=== PATIENT | female | born 1955 | race Two or more races ===

== ENCOUNTER 2019-05-21 10:03 | Outpatient (CLI) | payer BC ==
[~2019-05-21] VITALS: Ht 172.7 cm; Wt 68.0 kg
[~2019-05-21 10:03] MED LIST: Bupivacaine 0.5% Inj 30 ml vial INJ ONE; Depo-Medrol 80mg Vial IARTIC ONE; Lidocaine 1% Plain 30 ml INJ ONE
--- NOTE | 2019-05-21 10:40 | Pre-Procedure Note/Attestation ---
Pre-Procedure Note/Attestation Complete Prior to Procedure Planned Procedure: right Procedure Narrative: Therapeutic hip injection Indications for Procedure Pre-Operative Diagnosis: R hip osteoarthritis Attestation I attest that I discussed the nature of the procedure; its benefits; risks and complications; and alternatives (and the risks and benefits of such alternatives ), prior to the procedure, with the patient (or the patient's legal workforce services representative). I attest that, if there was a reasonable possibility of needing a blood transfusion, the patient (or the patient's legal workforce services representative) was given the [facility] standardized written summary, pursuant to the Perez Margaret Blood Safety Act ([place] Health and Safety Code # 1645, as amended). I attest that I re-evaluated the patient just prior to the surgery and that there has been no change in the patient's H&P, except as documented below: Alejandro Amos MD May 21, 2019 10:40
--- NOTE | 2019-05-21 11:00 | Brief Operative Note ---
Immediate Post Operative Note Operative Note Pre-op Diagnosis: R hip osteoarthritis Procedure: R hip steroid injection Post-op Diagnosis: same Surgeon: Debra Coombs Anesthesia: local Specimen: none Complications: none Fluids: none Implant(s) used?: No Alejandro Coombs MD May 21, 2019 11:00
--- NOTE | 2019-05-21 17:16 | Diagnostic Imaging Report ---
Indication: Patient pain secondary to osteoarthrosis Technique: Informed consent obtained prior to commencement of the procedure. Procedure timeout performed. Sterile prepping and draping right groin. Local anesthesia with 1% lidocaine. Under fluoroscopic guidance, 22-gauge spinal needle was passed to the superolateral femoral head neck junction. Small amount of lidocaine was injected, noted to flow freely. Small amount of contrast was injected, noted to flow freely and opacify the joint space. 10 mL mixture of 4 mL Marcaine, 4 mm lidocaine, and 80 mg of Depo-Medrol injected. Needle was removed. The patient tolerated the procedure well, without immediate complication. Total fluoroscopy time 53.9 sac. Total dose area product 0.1924 mGym2 Number of images: 2 Comparison: none Findings: Intraprocedural images document needle placement within the joint Impression: Right hip steroid injection, as described
== END 2019-05-21 12:03 | disposition home or self-care (01) ==
LOC: ULS 10:03
DX: M25.551 Pain in right hip (principal); M16.11 Unilateral primary osteoarthritis, right hip
CPT/HCPCS: 27096; J1040; J2001; J3490

== ENCOUNTER 2019-07-13 05:39 | Inpatient (IN) | payer BC ==
[~2019-07-13] VITALS: Ht 172.7 cm; Wt 70.3 kg
[2019-07-13] VITALS (12 sets, daily range): BP systolic 102–143; BP diastolic 56–90
[~2019-07-13 05:39] MED LIST changes: -Bupivacaine 0.5% Inj 30 ml vial INJ ONE; -Depo-Medrol 80mg Vial IARTIC ONE; +GABAPENTIN100 MG ORAL; -Lidocaine 1% Plain 30 ml INJ ONE; +VALIUM5 MG ORAL
[2019-07-13] MEDS ORDERED: oxyCONTIN 20mg tab ORAL ONE (06:00)
[2019-07-13] MEDS ORDERED: ceFAZolin 1gm IVPB IVPB ONE ×2 (06:00)
[2019-07-13] MEDS ORDERED: celeBREX 200mg Cap **SURGERY PATIENTS ONLY ORAL ONE (06:00)
[2019-07-13] MEDS ORDERED: cloNIDine 1000mcg/10ml inj ONE (06:18)
[2019-07-13] MEDS ORDERED: EPINEPHrine 1mg/1ml Amp ONE (06:18)
[2019-07-13] MEDS ORDERED: Bupivacaine 0.5% Inj 30 ml vial INJ ONE (06:18)
[2019-07-13] MEDS ORDERED: LR 1000ml 1,000 ML IVLG SCH (06:33)
--- NOTE | 2019-07-13 06:35 | Anethesia Preoperative Eval ---
Anesthesia Pre-op PMH/ROS General Date of Evaluation: Jul 13, 2019 Time of Evaluation: 06:46 Anesthesiologist: Bette ASA Score: ASA 2 Mallampati Score Class I : Soft palate, uvula, fauces, pillars visible Class II: Soft palate, uvula, fauces visible Class III: Soft palate, base of uvula visible Class IV: Only hard plate visible Mallampati Classification: Class II Surgeon: Samson Diagnosis: R Hip Pain Surgical Procedure: R Hip Total Arthroplasty Anesthesia History: none Family History: no anesthesia problems Allergies: Coded Allergies: No Known Allergies (Unverified , 05/21/19) Medications: see eMAR Patient NPO?: Yes Past Medical History Cardiovascular: Reports: HTN, other - HL Neurologic/Psychiatric: Reports: depression/anxiety Musculoskeletal/Integumentary: Reports: OA - Osteoporosis Anesthesia Pre-op Phys. Exam Physician Exam Last Vital Signs Date Time Temp Pulse Resp B/P (MAP) Pulse Ox O2 Delivery O2 Flow Rate FiO2 07/13/19 06:26 97.9 67 18 124/78 (93) 97 Constitutional: NAD Neurologic: CN 2-12 intact Cardiovascular: RRR Respiratory: CTA Gastrointestinal: S/NT/ND Airway Exam Mallampati Score: Class II MO: full ROM: limited Teeth: missing, intact Anesthesia Pre-op A/P Risk Assessment & Plan Assessment: ASA 2 Plan: GA, SED, Spinal Status Change Before Surgery: No Pre-Antibiotics Dru Gram Ancef IV Given Within 1 Hr of Incision: No Time Given: 07:11 Migue Amos MD Jul 13, 2019 06:35
[2019-07-13] MEDS ORDERED: Dexamethasone 4mg/ml vial ONE (06:38)
[2019-07-13] MEDS ORDERED: Propofol 200mg/20ml IV ONE (06:38)
[2019-07-13] MEDS ORDERED: Sodium Chloride 10ml vial INJ ONE (06:38)
[2019-07-13] MEDS ORDERED: Lidocaine 1% MPF 10mg/ml 5ml ONE (06:38)
[2019-07-13] MEDS ORDERED: LORazepam Inj 2mg/ml 1ml IV PRN (06:45)
[2019-07-13] MEDS ORDERED: HYDROcodone/Acetamin 5/325 tab ORAL PRN ×2 (06:45→07:00)
[2019-07-13] MEDS ORDERED: Meperidine 50mg/ml Inj(FOR RIGORS ONLY) IVP PRN (06:45)
[2019-07-13] MEDS ORDERED: Ketorolac 30mg Inj IV PRN ×2 (06:45)
[2019-07-13] MEDS ORDERED: Tranexamic Acid 1,000 MG in NS 55 ML IV SCH (06:45)
[2019-07-13] MEDS ORDERED: Midazolam 2mg/2ml Inj IVP PRN (06:45)
[2019-07-13] MEDS ORDERED: DiphenhydrAMINE 50mg/ml Inj IVP PRN (06:45)
[2019-07-13] MEDS ORDERED: Labetalol 5mg/ml 20ml vial IV PRN (06:45)
[2019-07-13] MEDS ORDERED: Atropine Sulfate 0.4mg/ml inj IVP PRN (06:45)
[2019-07-13] MEDS ORDERED: Hydromorphone 0.5mg/0.5ml inj IVP PRN (06:45)
[2019-07-13] MEDS ORDERED: oxyCODONE HCL/Acetaminophen 5/325mg ORAL PRN (06:45)
[2019-07-13] MEDS ORDERED: HYDROcodone/Acetamin 7.5/325 tab ORAL PRN (06:45)
[2019-07-13] MEDS ORDERED: Tranexamic Acid 1,000 MG in NS 65 ML IV SCH (06:45)
[2019-07-13] MEDS ORDERED: Metoclopramide 10mg/2ml Inj IVP PRN (06:45)
[2019-07-13] MEDS ORDERED: fentaNYL 100 mcg/2 mL IV PRN (06:45)
[2019-07-13] MEDS ORDERED: NeoSporin Gu Irrig 1ml Amp IRRIG ONE (06:46)
[2019-07-13] MEDS ORDERED: Bacitracin 50000 Units Vial ONE (06:46)
[2019-07-13] MEDS ORDERED: Bupivacaine w/Epi 0.5% 30ml Vial INJ ONE (06:46)
--- NOTE | 2019-07-13 06:55 | Pre-Procedure Note/Attestation ---
Pre-Procedure Note/Attestation Complete Prior to Procedure Planned Procedure: right Procedure Narrative: Rt total hip arthroplasty Indications for Procedure Pre-Operative Diagnosis: Rt hip arthritis Attestation I attest that I discussed the nature of the procedure; its benefits; risks and complications; and alternatives (and the risks and benefits of such alternatives ), prior to the procedure, with the patient (or the patient's legal treasury representative). I attest that, if there was a reasonable possibility of needing a blood transfusion, the patient (or the patient's legal treasury representative) was given the [facility] standardized written summary, pursuant to the Perez Margaret Blood Safety Act ([place] Health and Safety Code # 1645, as amended). I attest that I re-evaluated the patient just prior to the surgery and that there has been no change in the patient's H&P, except as documented below: NONE Bryn Davies MD Jul 13, 2019 06:55
[2019-07-13] MEDS ORDERED: NS Irrig 1000ml ONE (07:00)
[2019-07-13] MEDS ORDERED: Sterile Water Irrig 1000ml IRRIG ONE (07:00)
[2019-07-13] MEDS ORDERED: Milk of Magnesia 30ml Ud ORAL PRN (07:00)
[2019-07-13] MEDS ORDERED: LR 1000ml ONE (07:00)
[2019-07-13] MEDS ORDERED: ePHEDrine 50mg/ml Inj ONE (07:16)
--- NOTE | 2019-07-13 07:50 | Immediate Post-Op Evaluation ---
Immediate Post-Op Evalulation Immediate Post-Op Evalulation Procedure: R Hip Total Arthroplasty Date of Evaluation: Jul 13, 2019 Time of Evaluation: 07:32 IV Fluids: 1000 LR Blood Products: 0 Estimated Blood Loss: 40 Urinary Output: 150 Blood Pressure Systolic: 141 Blood Pressure Diastolic: 90 Pulse Rate: 84 Respiratory Rate: 16 O2 Sat by Pulse Oximetry: 100 Temperature (Fahrenheit): 97.9 Pain Score (1-10): 1 Nausea: No Vomiting: No Complications 0 Patient Status: awake, reacts, patent, none Hydration Status: adequate Dru Gram Ancef IV Given Within 1 Hr of Incision: Yes Time Given: 07:11 Migue Amos MD Jul 13, 2019 07:50
--- NOTE | 2019-07-13 10:12 | Brief Operative Note ---
Immediate Post Operative Note Operative Note Chief Complaint: rt hip arthritis Pre-op Diagnosis: rt hip arthritis Procedure: rt total hip arthroplasty Post-op Diagnosis: same as pre-op Findings: consistent w/pre-op dx studies Surgeon: md zack Glaze Sprayer: rhett joel Anesthesiologist: md zachery Anesthesia: general Specimen: yes Complications: none Condition: stable Fluids: ns Estimated Blood Loss: minimal Drains: none Implant(s) used?: Yes - Danica Guillen Jul 13, 2019 10:12
--- NOTE | 2019-07-13 10:45 | NUR ---
NURSE NOTES: PT BROUGHT UP TO 3 EAST FROM PACU. RECEIVED REPORT FROM CHARLIE TRIANA. PT IS AXOX4, CALM, RESTING IN BED. SCDS ON BOTH LOWER EXTREMITIES. IV ON LEFT HAND; ASYMPTOMATIC, PATENT AND INTACT. PT DENIES PAIN AT THIS TIME. ON NC 3L O2. PT STATES SHE HAS NO SENSATION OF LOWER EXTREMITIES AT THIS TIME. PEDAL PULSES PALPABLE AND NO SWELLING NOTED. PT EDUCATED TO NOTIFY RN IF FEELING NAUSEA OR PAIN. EDUCATED ON PRN PAIN MEDICATIONS. PT VERBALIZED UNDERSTANDING. BELONGINGS NOT BROUGHT UP WITH KAMILAH. RN WILL CONTACT OUTPATIENT SURGERY FOR BELONGINGS.
[2019-07-13] MEDS: D5 1/2NS w/KCl 20mEq 1,000 ML IV SCH (12:08)
--- NOTE | 2019-07-13 12:25 | Diagnostic Imaging Report ---
Indication: Postoperative Technique: One view of the pelvis Comparison: 2 hours earlier Findings: There is a right hip arthroplasty prosthesis in good position. Interim replacement of previously demonstrated right femoral broach with the femoral stem of the prosthesis. Retained air from the surgical exposure seen within the soft tissues. Impression: Postoperative right hip. No unusual features MTDD
--- NOTE | 2019-07-13 12:48 | NUR ---
*-* INSURANCE *-* ALL AVAILABLE CLINICALS HAVE BEEN FAXED TO: [employer] Auth#[id number] No CM yet & BX Tracking#[id number]
[2019-07-13] MEDS: Docusate 100mg cap ORAL SCH ×2 (13:17→17:28)
--- NOTE | 2019-07-13 14:12 | NUR ---
NURSE NOTES: PER DR YANG, ASK DR HUNTER FOR DVT PROPHYLAXIS. RN LEFT MESSAGE FOR DR HUNTER'S EXCHANGE. PER DR ZAVALA, OK TO CONTINUE HOME MEDS: GABAPENTIN 100MG BID AND DIAZEPAM 5MG PO PRN QHS.
--- NOTE | 2019-07-13 15:11 | NUR ---
P.T Note: P.T evaluation completed and treatment initiated per THR protocol POD#0. Pt. is alert, despite being drowsy as pt described. Pt denied c/o pain but dizziness and numbness of the entire RLE secondary to anaesthesia still in effect. Educated pt on spinal precautions, AGA exercise protocol as well as safety with mobilities. POC and recommendation were also discussed. Pt verbalized/indicated understanding. Pt tolerated P.T evaluation and treatment well despite being limited by dizziness and being drowsy. Pt currently require MIN A X 1 for bed mobilities, Transfers and Gait/ambulation using the FWW. Skilled P.T services is warranted during stay to facilitate return to PLOF. Recommend Home P.T ,FWW and 3 in 1 Bedside commode at [place]. Thank you for this referral.
[2019-07-13] MEDS: ceFAZolin sod 2 GM in D5W 110 ML IV SCH ×2 (15:52→22:44)
--- NOTE | 2019-07-13 16:25 | NUR ---
CASE MANAGEMENT:REVIEW 63 YR OLD FEMALE HERE FOR ELECTIVE SURGERY SI: RT HIP OSTEOARTHRITIS 97.9 67 18 124/78 97% ON RA IS: TO SURGERY FOR: RT TOTAL HIP ARTHROPLASTY : TO MED/SURG 3 EAST POST OP
--- NOTE | 2019-07-13 16:30 | NUR ---
NURSE NOTES: BELONGINGS CHECKED AT BEDSIDE. ALL BELONGINGS ARE ACCOUNTED. PT WISHES TO HAVE CLOTHING AND CANE PLACED IN CLOSET.
--- NOTE | 2019-07-13 16:59 | NUR ---
NURSE NOTES: PT HAS NOT VOIDED SINCE ARRIVAL TO UNIT AROUND 1030 HRS. BLADDER SCAN SHOWS 450ML URINE IN BLADDER. RN LEFT MESSAGE FOR DR YANG'S OFFICE. AWAITING NEW ORDERS. CRN MADE AWARE. PT STATES PAIN IS WELL-CONTROLLED, DENIES NAUSEA OR SOB. IN NO APPARENT DISTRESS AT THIS TIME.
[2019-07-13] MEDS: Aspirin Baby 81mg ORAL SCH (17:28)
--- NOTE | 2019-07-13 17:30 | Operative Note - Dictated ---
DATE OF OPERATION: 07/13/2019 PREOPERATIVE DIAGNOSIS: Right hip end-stage arthritis. POSTOPERATIVE DIAGNOSIS: Right hip end-stage arthritis. PROCEDURE: Right total hip arthroplasty using Diana Accolade/Trident system, size 6 Accolade 127 degree neck angle stem, size 52 mm Trident Acetabular Shell with two dome screws, 10-degree lip AltrX cross-linked poly, and +0 36 mm head. SURGEON: Bryn Davies M.D. GRAIN MERCHANDISING MANAGER: Danica Asher PA-C. ANESTHESIOLOGIST: Migue Amos M.D. ANESTHESIA: Spinal anesthesia. ESTIMATED BLOOD LOSS: Less than 150 mL. COMPLICATIONS: None. BRIEF HISTORY: The patient is a very pleasant 63-year-old female, who has had ongoing right hip arthritis. She failed nonoperative treatment including physical therapy, anti-inflammatory as well as activity modification. She was limited in activities with walking and she has hard time sleeping. After full discussion of risks and benefits of surgery and complications associated with it including infection, bleeding, neurovascular complication, possible leg length discrepancy, DVT, PEs, limping, footdrop, and loosening of the prosthesis and require revision arthroplasty as well as dislocation, she opted for surgical treatment as described above. OPERATIVE PROCEDURE: The patient was brought to the operating room, placed supine, all pressure points were well padded. Spinal anesthesia was induced. The patient was placed in left lateral decubitus position with the right hip up. The patient was stabilized using a pegboard. All pressure points well padded. The right hip was then prepped and draped in usual sterile fashion and after time-out was performed, preoperative antibiotics and tranexamic acid was given, a standard posterolateral approach to the hip was undertaken. The incision was taken through subcutaneous tissue down to the gluteal fascia. The gluteal fascia was opened, anteriorly retractors were placed in. The short external rotators were released and the capsule was T'd and they were tagged for later repair. The labrum was resected and the hip was dislocated. At this point, a standard femoral neck cut was performed without any complication. This was done approximately 1 cm proximal to the lesser trochanter. Once this was completed, the anterior acetabular retractor was placed in and other retractors were placed on the acetabulum to expose the acetabulum. The labrum was resected and using inferior transverse acetabular ligament as a guide, the medial osteophyte was removed. Subsequently, sequential reaming was performed all the way up to size 52 mm. Care was given to perform reaming above 45 degrees of inclination and 35 degrees of anteversion. Once this was completed, the acetabular cup was then trialed and subsequently after irrigating with Simpulse irrigation, a 3-hole 52 mm Acetabular Trident Shell was then placed in without any complications. There was excellent stability. 20 mm and 25 mm dome screws were placed in. Once this was completed, care was given to the liner. The acetabulum was irrigated and a 10-degree lip liner was then locked in without any complication. Once this was completed, care was given to the femur. The retractors were removed. At this point, care was given to the femur. The hip was internally rotated. Appropriate retractors were placed in. The entry point was lateralized and a canal finder was placed. Sequential broaching was performed from size 1 to size 6. Size 6 provided excellent axial rotational stability. A high-offset neck and a +0 36 mm trial head were assembled and the entire construct was reduced. The leg lengths appeared to be equal. The range of motion was excellent. There was no significant tension. There was good internal and external rotation and there was excellent stability at 0, 30 degrees, 45 degrees, and 90 degrees of flexion with the hip in neutral Adduction. The hip could be internally rotated up to 75 to 80 degrees without dislocation. Once this was completed, intraoperative x-rays were obtained, which showed equal leg lengths and the components were in excellent position. At this point, the hip was dislocated again and the trial components were removed. A size 6 Accolade stem was then malleted in and after thorough irrigation of the femur and wounds. A high-offset neck was used. Subsequently, a 36 mm +0 cobalt-chromium head was applied and after drying the [place] taper and was malleted in and stability of the head and neck were checked, there was excellent stability. At this point, the entire construct was reduced and range of motion, leg lengths and stability was rechecked and appeared to be perfect. Wounds were thoroughly irrigated using copious amount of Simpulse irrigation. The short external rotators were closed using drill holes into the greater trochanter. The tensor fascia and gluteal fascia was then closed using #1 Vicryl suture. The subcutaneous tissue was closed using 2-0 Vicryl suture. Skin was closed using 3-0 Monocryl suture. Dermabond was applied. The patient tolerated procedure well without any complication, was taken recovery room in stable condition. All lap counts and instrument counts were correct. Bryn Davies M.D. DR: MARLIN JOB#: [id number] CC: YADIRA
[2019-07-13] MEDS: HYDROmorphone 1mg/ml Carpuject SUBQ PRN ×2 (17:38→22:42)
--- NOTE | 2019-07-13 17:55 | NUR ---
NURSE NOTES: PER JANN TILLEY (CHRISTOS), SCDS AND ASA 81MG OK DVT PROPHYLAXIS.
--- NOTE | 2019-07-13 18:45 | NUR ---
NURSE NOTES: PT VOIDED MODERATE AMOUNT OF CLEAR YELLOW URINE BY BEDPAN.
--- NOTE | 2019-07-13 19:21 | NUR ---
HAND-OFF: Report given to Khurram BELCHER RN.
--- NOTE | 2019-07-13 19:30 | NUR ---
NURSE NOTES: Received report from Jose Luis RN and rounds made with out going nurse. Received pt laying in bed, AOx4, denies pain at this time, no distress noted. Surgical dressing C/D/I. Neuro check wnl. IV patent and intact. IV fluid infusing as ordered. Bed in lowest position and locked, side rails up x 2, call light within reach. Will continue to monitor.
[2019-07-13] MEDS: oxyCONTIN 20mg tab ORAL SCH (21:37)
[2019-07-14] VITALS: BP 111/62
[2019-07-14] MEDS: D5 1/2NS w/KCl 20mEq 1,000 ML IV SCH ×3 (01:15→17:20)
[2019-07-14] MEDS: HYDROmorphone 1mg/ml Carpuject SUBQ PRN ×5 (02:42→20:09)
[2019-07-14 06:20] VITALS: BP 105/63
[2019-07-14 06:42] LABS: BASOPHILS % (AUTO) 0.5 % (0.0-2.0); EOSINOPHILS % (AUTO) 2.2 % (0.0-3.0); HEMATOCRIT 30.1 % (37.0-47.0); HEMOGLOBIN 10.3 G/DL (12.0-16.0); LYMPHOCYTES % (AUTO) 26.1 % (20.0-45.0); MEAN CORPUSCULAR VOLUME 87 FL (80-99); MONOCYTES % (AUTO) 8.3 % (1.0-10.0); NEUTROPHILS % (AUTO) 62.9 % (45.0-75.0); PLATELET COUNT 195 K/UL (150-450); RED BLOOD COUNT 3.44 M/UL (4.20-5.40); RED CELL DISTRIBUTION WIDTH 12.3 % (11.6-14.8); WHITE BLOOD COUNT 8.4 K/UL (4.8-10.8)
[2019-07-14 07:00] LABS: ANION GAP 2 mmol/L (5-15); BLOOD UREA NITROGEN 11 mg/dL (7-18); CALCIUM 9.1 MG/DL (8.5-10.1); CARBON DIOXIDE 31 MMOL/L (21-32); CHLORIDE 108 MMOL/L (98-107); CREATININE 0.6 MG/DL (0.55-1.30); POTASSIUM 4.7 MMOL/L (3.5-5.1); SODIUM 141 MMOL/L (136-145)
--- NOTE | 2019-07-14 07:20 | NUR ---
NURSE NOTES: HANDOFF RECEIVED FROM CHARLIE GLALAGHER. PATIENT RECEIVED AWAKE AND ALERT, RESTING IN BED. PATIENT IS ABLE TO MAKE NEEDS KNOWN. PATIENT IV SITE IS CLEAN, DRY AND INTACT RUNNING PRESCRIBED FLUIDS. SURGICAL SITE IS CLEAN DRY AND INTACT. BED IS IN THE LOW AND LOCKED POSITION, PATIENT HAS CALL LIGHT WITHIN REACH. WILL CONTINUE TO MONITOR PATIENT.
--- NOTE | 2019-07-14 07:30 | NUR ---
HAND-OFF: Report given to CHARLIE Badillo. Pt in stable condition.
--- NOTE | 2019-07-14 07:31 | Orthopedic Progress Note ---
Orthopedic - Progress Note Subjective Symptoms: c/o post-op hip pain Objective Last 24 Hour Vital Signs Date Time Temp Pulse Resp B/P (MAP) Pulse Ox O2 Delivery O2 Flow Rate FiO2 07/14/19 06:20 98.5 90 18 105/63 (77) 98 07/14/19 00:00 98.4 93 18 111/62 (78) 99 07/13/19 21:00 Room Air 07/13/19 20:00 98.7 92 17 103/56 (72) 98 07/13/19 17:04 Nasal Cannula 2.0 07/13/19 16:00 98.3 96 19 102/59 (73) 96 07/13/19 12:00 97.3 81 18 136/70 (92) 98 07/13/19 11:15 97.1 71 19 133/81 (98) 97 07/13/19 10:45 97.2 82 17 137/69 (91) 96 07/13/19 10:00 97.2 76 12 135/73 100 Nasal Cannula 3 07/13/19 09:50 66 12 137/73 100 Nasal Cannula 3 07/13/19 09:40 73 12 142/75 100 Nasal Cannula 3 07/13/19 09:30 78 12 143/76 100 Simple Mask 6 07/13/19 09:25 79 18 142/80 100 Simple Mask 6 07/13/19 09:21 97.9 81 22 141/90 100 Simple Mask 6 07/13/19 09:19 84 16 100 Intake and Output 07/13/19 07/14/19 18:59 06:59 Intake Total 2165 ml 1235 ml Output Total 190 ml Balance 1975 ml 1235 ml Intake Oral 480 ml 300 ml IV Total 1685 ml 935 ml Output Urine Total 150 ml Estimated Blood Loss 40 ml # Voids 1 Laboratory Tests Test 07/14/19 05:20 White Blood Count 8.4 K/UL (4.8-10.8) Red Blood Count 3.44 M/UL (4.20-5.40) L Hemoglobin 10.3 G/DL (12.0-16.0) L Hematocrit 30.1 % (37.0-47.0) L Mean Corpuscular Volume 87 FL (80-99) Mean Corpuscular Hemoglobin 30.0 PG (27.0-31.0) Mean Corpuscular Hemoglobin Concent 34.3 G/DL (32.0-36.0) Red Cell Distribution Width 12.3 % (11.6-14.8) Platelet Count 195 K/UL (150-450) Mean Platelet Volume 7.0 FL (6.5-10.1) Neutrophils (%) (Auto) 62.9 % (45.0-75.0) Lymphocytes (%) (Auto) 26.1 % (20.0-45.0) Monocytes (%) (Auto) 8.3 % (1.0-10.0) Eosinophils (%) (Auto) 2.2 % (0.0-3.0) Basophils (%) (Auto) 0.5 % (0.0-2.0) Sodium Level 141 MMOL/L (136-145) Potassium Level 4.7 MMOL/L (3.5-5.1) Chloride Level 108 MMOL/L (98-107) H Carbon Dioxide Level 31 MMOL/L (21-32) Anion Gap 2 mmol/L (5-15) L Blood Urea Nitrogen 11 mg/dL (7-18) Creatinine 0.6 MG/DL (0.55-1.30) Estimat Glomerular Filtration Rate > 60 mL/min (>60) Glucose Level 115 MG/DL (74-106) H Calcium Level 9.1 MG/DL (8.5-10.1) Wound: clean, dry, intact Drains: none Neuro Status: normal Vascular Status: normal Assessment Post-op Diagnosis right total hip arthoplasty POD#1 Plan Plan: PT, pain management, discharge plan, discharge to home Additional Comments Anticipate discharge tomorrow Bryn Davies MD Jul 14, 2019 07:31
--- NOTE | 2019-07-14 07:58 | 48 Hour Post Anesthesia Eval ---
Post Anesthesia Evaluation Procedure: R Hip Total Arthroplasty Date of Evaluation: Jul 14, 2019 Time of Evaluation: 06:16 Blood Pressure Systolic: 105 0: 63 Pulse Rate: 90 Respiratory Rate: 18 Temperature (Fahrenheit): 98.5 O2 Sat by Pulse Oximetry: 98 Airway: patent Nausea: No Vomiting: No Pain Intensity: 2 Hydration Status: adequate Cardiopulmonary Status: Stable Mental Status/LOC: patient returned to baseline Follow-up Care/Observations: 0 Post-Anesthesia Complications: 0 Follow-up care needed: N/A Migue Amos MD Jul 14, 2019 07:58
[2019-07-14 08:00] VITALS: BP 126/70
[2019-07-14] MEDS: Docusate 100mg cap ORAL SCH ×3 (08:59→17:14)
[2019-07-14] MEDS: celeBREX 200mg Cap **SURGERY PATIENTS ONLY ORAL SCH (08:59)
[2019-07-14] MEDS: Aspirin Baby 81mg ORAL SCH ×2 (08:59→17:15)
[2019-07-14] MEDS: oxyCONTIN 20mg tab ORAL SCH ×2 (09:01→21:00)
--- NOTE | 2019-07-14 10:13 | NUR ---
DISCHARGE PLANNING DISCHARGE ORDER NOTED CALLED DR HUNTER'S OFFICE AND SPOKE WITH MARU T: [phone] MARU SAID HE WOULD ARRANGE THE HOME HEALTH FOR THIS PATIENT
--- NOTE | 2019-07-14 10:15 | NUR ---
NURSE NOTES: PATIENT STATES THAT SHE FEELS A LITTLE DIZZY AFTER STANDING UP WITH PT. BLOOD PRESSURE IN THE HIGH 80'S PATIENT'S BASELINE BLOOD PRESSURE IN THE 90S-LOW 100'S PATIENT ALSO STATED THAT SHE FEELS NAUSEOUS, PATIENT DOES NOT HAVE ANY PRN MEDICATIONS FOR NAUSEA. ASKED PATIENT IF SHE WOULD LIKE ME TO CONTACT THE DR TO GET SOMETHING FOR NAUSEA, SHE STATED NOT AT THIS TIME. INFORMED PATIENT TO USE CALL LIGHT AND LET ME KNOW IF SHE CHANGES HER MIND AND WOULD LIKE ME TO CONTACT THE DR. Addendum: 07/14/19 at 1345 by Justino Gomez RN NOTED IN ABOVE NOTE THAT PATIENTS BASELINE BLOOD PRESSURE IS IN THE 90S-100S CHARTED ON THE WRONG PATIENT. ALL OF THE ABOVE INFORMATION IS CORRECT EXCEPT THE NOTED BASELINE BLOOD PRESSURE. PLEASE IGNORE THE BASELINE BLOOD PRESSURE NOTED ABOVE.
--- NOTE | 2019-07-14 10:37 | NUR ---
NURSE NOTES: RE-CHECKED EMAR AND PATIENT DOES HAVE PRN MEDICATION FOR NAUSEA. WILL LET PATIENT KNOW AND ADMINISTER MEDICATION IF REQUESTED.
[2019-07-14 12:00] VITALS: BP 115/72
--- NOTE | 2019-07-14 13:46 | NUR ---
NURSE NOTES: PATIENT HAS ORDER TO STOP IV FLUIDS IF ABLE TO TOLERATE ORAL LIQUIDS. PATIENT STATES THAT SHE IS TIRED AND WOULD RATHER HAVE THE IV FLUIDS RUNNING BECAUSE SHE DOES NOT FEEL UP TO DRINKING FLUIDS BY MOUTH SHE WANTS TO FOCUS ON SLEEPING.
--- NOTE | 2019-07-14 14:00 | NUR ---
NURSE NOTES: PATIENT HAS ORDER FOR DISCHARGE TOMORROW, PATIENT EXPRESSED CONCERN AT DISCHARGE. PATIENT TOLD PT AND I THAT SHE DOES NOT FEEL LIKE SHE WILL BE READY TO GO HOME TOMORROW, STATES THAT SHE HAS TO CLIMB A LOT OF STEEP STAIRS TO GET TO HER APARTMENT. WILL ENDORSE TO NIGHTSHIFT NURSE TO TELL DAY SHIFT 07/15 THAT SHE DOES NOT FEEL READY TO BE DISCHARGED.
--- NOTE | 2019-07-14 14:14 | NUR ---
*-* INSURANCE *-* ALL AVAILABLE CLINICALS HAVE BEEN FAXED TO: [employer] Auth#[id number] No CM yet & BX Tracking#[id number]
[2019-07-14 16:00] VITALS: BP 107/71
--- NOTE | 2019-07-14 19:30 | NUR ---
NURSE NOTES: Received report marlene Badillo RN. Received pt laying in bed, AOx4, pain level 5/10, will medicate for pain as needed. Surgical dressing C/D/I. Neuro check wnl. IV patent and intact. No distress noted. Bed in lowest position and locked, side rails up x 2, call light within reach. Will continue to monitor.
--- NOTE | 2019-07-14 19:40 | NUR ---
NURSE NOTES: Complaint of heartburn. Denies nausea. No medication for heartburn. Paged Dr. Hinojosa, awaiting for call back.
--- NOTE | 2019-07-14 19:55 | NUR ---
NURSE NOTES: Dr. Hinojosa called back order obtained for heartburn medication. Order verified and read back.
--- NOTE | 2019-07-14 19:56 | NUR ---
HAND-OFF: Report given to CHARLIE GALLAGHER.
[2019-07-14 20:00] VITALS: BP 104/68
--- NOTE | 2019-07-14 20:43 | History & Physical ---
History of Present Illness General Date patient seen: Jul 14, 2019 Reason for Hospitalization: s/p THR consulted for medical care Present Illness Allergies: Coded Allergies: No Known Allergies (Unverified , 05/21/19) Medication History Scheduled Gabapentin* (Gabapentin*), 100 MG ORAL BID, (Reported) Scheduled PRN Diazepam* (Valium*), 5 MG ORAL HS PRN for ANXIETY, (Reported) Patient History Healthcare decision maker benny(sister) Resuscitation status Full Code Advanced Directive on File No Review of Systems Review of Symptoms General ROS: no weight loss or fever Ophthalmic ROS: no visual changes or eye irritation Endocrine ROS: no polyuria, polydipsia, weight changes, temperature intolerance Respiratory ROS: no cough, shortness of breath, or wheezing Cardiovascular ROS: no chest pain or dyspnea on exertion Gastrointestinal ROS: denies abdominal pain, bright red blood in stool. Musculoskeletal ROS: has pain Neurological ROS: no TIA or stroke symptoms Dermatological ROS: no new or changing skin lesions, rashes or pruritis Physical Exam Physical Exam General appearance: alert, cooperative, Head: Normocephalic, without obvious abnormality, atraumatic Neck: no carotid bruit and no JVD Lungs: clear to auscultation bilaterally Heart: regular rate and rhythm, S1, S2 normal, Abdomen: soft, non-tender. Extremities: no cyanosis or edema Last 24 Hour Vital Signs Date Time Temp Pulse Resp B/P (MAP) Pulse Ox O2 Delivery O2 Flow Rate FiO2 07/14/19 16:00 98.1 103 20 107/71 (83) 97 07/14/19 12:00 98.4 92 20 115/72 (86) 97 07/14/19 09:00 Room Air 07/14/19 08:00 98.6 97 21 126/70 (88) 97 07/14/19 07:58 90 18 98 07/14/19 06:20 98.5 90 18 105/63 (77) 98 07/14/19 00:00 98.4 93 18 111/62 (78) 99 07/13/19 21:00 Room Air Intake and Output 07/13/19 07/14/19 19:00 07:00 Intake Total 2165 ml 1235 ml Output Total 190 ml Balance 1975 ml 1235 ml Intake Oral 480 ml 300 ml IV Total 1685 ml 935 ml Output Urine Total 150 ml Estimated Blood Loss 40 ml # Voids 1 Laboratory Tests Test 07/14/19 05:20 White Blood Count 8.4 K/UL (4.8-10.8) Red Blood Count 3.44 M/UL (4.20-5.40) L Hemoglobin 10.3 G/DL (12.0-16.0) L Hematocrit 30.1 % (37.0-47.0) L Mean Corpuscular Volume 87 FL (80-99) Mean Corpuscular Hemoglobin 30.0 PG (27.0-31.0) Mean Corpuscular Hemoglobin Concent 34.3 G/DL (32.0-36.0) Red Cell Distribution Width 12.3 % (11.6-14.8) Platelet Count 195 K/UL (150-450) Mean Platelet Volume 7.0 FL (6.5-10.1) Neutrophils (%) (Auto) 62.9 % (45.0-75.0) Lymphocytes (%) (Auto) 26.1 % (20.0-45.0) Monocytes (%) (Auto) 8.3 % (1.0-10.0) Eosinophils (%) (Auto) 2.2 % (0.0-3.0) Basophils (%) (Auto) 0.5 % (0.0-2.0) Sodium Level 141 MMOL/L (136-145) Potassium Level 4.7 MMOL/L (3.5-5.1) Chloride Level 108 MMOL/L (98-107) H Carbon Dioxide Level 31 MMOL/L (21-32) Anion Gap 2 mmol/L (5-15) L Blood Urea Nitrogen 11 mg/dL (7-18) Creatinine 0.6 MG/DL (0.55-1.30) Estimat Glomerular Filtration Rate > 60 mL/min (>60) Glucose Level 115 MG/DL (74-106) H Calcium Level 9.1 MG/DL (8.5-10.1) Height (Feet): 5 Height (Inches): 8.00 Weight (Pounds): 155 Medications Current Medications Medications (Trade) Dose Ordered Sig/Jerica Route PRN Reason Start Time Stop Time Status Last Admin Dose Admin Acetaminophen (Tylenol) 650 mg Q4H PRN ORAL Mild Pain (Pain Scale 1-3) 07/13/19 07:00 08/12/19 06:59 Acetaminophen (Tylenol) 650 mg Q4H PRN ORAL temp>100 07/13/19 07:00 08/12/19 06:59 Acetaminophen/ Hydrocodone Bitart ([place] 5/325) 2 tab Q6H PRN ORAL Severe Pain (Pain Scale 7-10) 07/13/19 07:00 07/20/19 06:59 Acetaminophen/ Hydrocodone Bitart ([place] 7.5/325) 1 tab Q4H PRN ORAL Moderate Pain (Pain Scale 4-6) 07/13/19 07:00 07/20/19 06:59 Aspirin (ASA) 81 mg BID ORAL 07/13/19 18:00 08/12/19 17:59 07/14/19 17:15 Celecoxib (CeleBREX) 200 mg DAILY ORAL 07/14/19 09:00 08/13/19 08:59 07/14/19 08:59 Dextrose/ Electrolytes 1,000 ml @ 75 mls/hr [id number] IV 07/13/19 12:00 08/12/19 11:59 07/14/19 17:20 Diazepam (Valium) 5 mg HSPRN PRN ORAL Insomnia 07/13/19 13:45 07/20/19 13:44 07/13/19 20:02 Docusate Sodium (Colace) 100 mg THREE TIMES A DAY ORAL 07/13/19 13:00 08/12/19 12:59 07/14/19 17:14 Famotidine (Pepcid) 20 mg BID ORAL 07/14/19 20:00 08/13/19 19:59 07/14/19 20:13 Ferrous Sulfate (Feosol) 325 mg THREE TIMES A DAY ORAL 07/13/19 13:00 08/12/19 12:59 07/14/19 17:14 Gabapentin (Neurontin) 100 mg BID ORAL 07/13/19 18:00 08/12/19 17:59 07/14/19 17:14 Hydromorphone HCl (Dilaudid) 1 mg Q4H PRN SUBQ Mild Pain (Pain Scale 1-3) 07/13/19 07:00 07/20/19 06:59 07/14/19 20:09 Hydromorphone HCl (Dilaudid) 2 mg Q3H PRN SUBQ Severe Pain (Pain Scale 7-10) 07/13/19 10:25 07/20/19 10:24 Hydromorphone HCl (Dilaudid) 2 mg Q4H PRN SUBQ Moderate Pain (Pain Scale 4-6) 07/13/19 07:00 07/20/19 06:59 07/13/19 13:18 Magnesium Hydroxide (Mom) 30 ml DAILYPRN PRN ORAL Constipation 07/13/19 07:00 08/12/19 06:59 Oxycodone HCl (OxyCONTIN) 20 mg EVERY 12 HOURS ORAL 07/13/19 21:00 07/20/19 20:59 07/14/19 09:01 Pantoprazole (Protonix) 40 mg DAILY ORAL 07/14/19 09:00 08/13/19 08:59 07/14/19 09:00 Prochlorperazine (Compazine) 10 mg Q6H PRN IVP Nausea & Vomiting 07/13/19 10:30 08/12/19 06:59 Assessment/Plan Assessment/Plan: s/p thr perioperative blood loss Diagnosis [place] I: pain control monitor cbc pt ot dcvt porphyalxis scd on asa will follow Jorje Hinojosa MD Jul 14, 2019 20:43
[2019-07-15] VITALS: BP 114/71
[2019-07-15] MEDS: HYDROmorphone 1mg/ml Carpuject SUBQ PRN ×2 (00:11→05:04)
[2019-07-15 04:00] VITALS: BP 109/65
--- NOTE | 2019-07-15 05:28 | NUR ---
NURSE NOTES: Pt refused to have dressing change done to right hip at this time. Pt requested dressing change after breakfast.
[2019-07-15 06:35] LABS: BASOPHILS % (AUTO) 0.7 % (0.0-2.0); EOSINOPHILS % (AUTO) 4.8 % (0.0-3.0); HEMOGLOBIN 10.1 G/DL (12.0-16.0); LYMPHOCYTES % (AUTO) 18.3 % (20.0-45.0); MEAN CORPUSCULAR VOLUME 88 FL (80-99); MONOCYTES % (AUTO) 9.1 % (1.0-10.0); NEUTROPHILS % (AUTO) 67.1 % (45.0-75.0); PLATELET COUNT 178 K/UL (150-450); RED BLOOD COUNT 3.42 M/UL (4.20-5.40); RED CELL DISTRIBUTION WIDTH 12.2 % (11.6-14.8); WHITE BLOOD COUNT 9.5 K/UL (4.8-10.8)
--- NOTE | 2019-07-15 07:14 | NUR ---
HAND-OFF: Report given to CHARLIE Simons. Pt in stable condition. Endorsed to Kristyn that pt requested surgical dressing change after breakfast.
--- NOTE | 2019-07-15 07:59 | Orthopedic Progress Note ---
Orthopedic - Progress Note Subjective Symptoms: c/o post-op hip pain Objective Laboratory Tests Test 07/15/19 05:45 White Blood Count 9.5 K/UL (4.8-10.8) Red Blood Count 3.42 M/UL (4.20-5.40) L Hemoglobin 10.1 G/DL (12.0-16.0) L Hematocrit 30.0 % (37.0-47.0) L Mean Corpuscular Volume 88 FL (80-99) Mean Corpuscular Hemoglobin 29.5 PG (27.0-31.0) Mean Corpuscular Hemoglobin Concent 33.7 G/DL (32.0-36.0) Red Cell Distribution Width 12.2 % (11.6-14.8) Platelet Count 178 K/UL (150-450) Mean Platelet Volume 7.0 FL (6.5-10.1) Neutrophils (%) (Auto) 67.1 % (45.0-75.0) Lymphocytes (%) (Auto) 18.3 % (20.0-45.0) L Monocytes (%) (Auto) 9.1 % (1.0-10.0) Eosinophils (%) (Auto) 4.8 % (0.0-3.0) H Basophils (%) (Auto) 0.7 % (0.0-2.0) Last 24 Hour Vital Signs Date Time Temp Pulse Resp B/P (MAP) Pulse Ox O2 Delivery O2 Flow Rate FiO2 07/15/19 04:00 98.2 85 17 109/65 (80) 97 07/15/19 00:00 100.3 90 18 114/71 (85) 96 07/14/19 21:00 Room Air 07/14/19 20:00 100.4 97 18 104/68 (80) 98 07/14/19 16:00 98.1 103 20 107/71 (83) 97 07/14/19 12:00 98.4 92 20 115/72 (86) 97 07/14/19 09:00 Room Air 07/14/19 08:00 98.6 97 21 126/70 (88) 97 Intake and Output 07/14/19 07/15/19 18:59 06:59 Intake Total 975 ml 600 ml Balance 975 ml 600 ml Intake Oral 900 ml 600 ml IV Total 75 ml # Voids 2 2 Laboratory Tests Test 07/15/19 05:45 White Blood Count 9.5 K/UL (4.8-10.8) Red Blood Count 3.42 M/UL (4.20-5.40) L Hemoglobin 10.1 G/DL (12.0-16.0) L Hematocrit 30.0 % (37.0-47.0) L Mean Corpuscular Volume 88 FL (80-99) Mean Corpuscular Hemoglobin 29.5 PG (27.0-31.0) Mean Corpuscular Hemoglobin Concent 33.7 G/DL (32.0-36.0) Red Cell Distribution Width 12.2 % (11.6-14.8) Platelet Count 178 K/UL (150-450) Mean Platelet Volume 7.0 FL (6.5-10.1) Neutrophils (%) (Auto) 67.1 % (45.0-75.0) Lymphocytes (%) (Auto) 18.3 % (20.0-45.0) L Monocytes (%) (Auto) 9.1 % (1.0-10.0) Eosinophils (%) (Auto) 4.8 % (0.0-3.0) H Basophils (%) (Auto) 0.7 % (0.0-2.0) Wound: clean, dry, intact Drains: none Neuro Status: normal Vascular Status: normal Assessment Post-op Diagnosis POD 2 Procedure Performed rt total hip arthroplasty Plan Plan: PT, discharge plan Danica Asher Jul 15, 2019 07:59
[2019-07-15 08:00] VITALS: BP 105/63
--- NOTE | 2019-07-15 08:00 | NUR ---
NURSE NOTES: Received report from Cedric GUERRA. Patient is awake and oriented, no acute distress noted, reporting pain rated 4/10 at surgical site. SCD's and abductor pillow in place. Surgical site dressing clean and dry. IV intact, locked. Patient updated on plan of care for the day. Side rails upx2, bed low and locked, front wheel walker at bedside, call light in reach. Will continue to monitor.
[2019-07-15] MEDS: Docusate 100mg cap ORAL SCH ×3 (08:45→18:36)
[2019-07-15] MEDS: celeBREX 200mg Cap **SURGERY PATIENTS ONLY ORAL SCH (08:45)
[2019-07-15] MEDS: oxyCONTIN 20mg tab ORAL SCH ×2 (08:46→21:22)
--- NOTE | 2019-07-15 10:50 | NUR ---
NURSE NOTES: Patient had near syncopal episode while up with physical therapist. Patient reports she felt light headed and dizzy, patient assisted back to bed by PT and RN. Patient feels diaphoretic. VS assessed: BP 98/59, HR 79, RR 18, o2 saturation 96% on RA, patient placed on continuous pulseox. Charge nurse aware. Call light in reach and patient instructed not to get OOB without calling for assistance first. Will continue to monitor.
[2019-07-15 11:32] VITALS: BP 126/73
--- NOTE | 2019-07-15 11:33 | NUR ---
NURSE NOTES: Patient reports she is feeling better, no longer diaphoretic/dizzy, encouraged patient to drink liquids as tolerated. Reassessed VS: BP 126/73, HR 86, RR 16, temp 98.1, o2 saturation 98% of RA. Will continue to monitor.
--- NOTE | 2019-07-15 12:18 | NUR ---
CASE MANAGEMENT:REVIEW 07/15/19 SI:POD #2 RT TOTAL HIP ARTHROPLASTY 100.3 104 17 105/63 93% ON RA IS: ASA PO BID PEPCID PO BID CELEBREX PO QD PROTONIX PO QD OXYCONTIN PO Q12 NEURONTIN PO BID : MED/SURG STATUS 3 EAST PLAN: HOME TOMORROW
--- NOTE | 2019-07-15 12:55 | NUR ---
*-* INSURANCE *-* ALL AVAILABLE CLINICALS HAVE BEEN FAXED TO: [facility] Auth#[id number] NCM:FRANKLIN & BX Tracking#[id number]
--- NOTE | 2019-07-15 12:55 | NUR ---
*-* INSURANCE *-* ALL AVAILABLE CLINICALS HAVE BEEN FAXED TO: [facility] Auth#[id number] No CM yet & BX Tracking#[id number]
[2019-07-15 16:00] VITALS: BP 119/70
--- NOTE | 2019-07-15 16:34 | NUR ---
NURSE NOTES: Right hip dressing changed per MD order. Patient tolerated well. No s/s of surgical site infection noted on surgical wound assessment.
--- NOTE | 2019-07-15 18:43 | NUR ---
NURSE NOTES: Patient reported itchy, painful rash on back. Assessed patient's back and noted erythema and rash on back. Called Dr. Hinojosa and reported findings to MD. Received order for Benadryl PRN and Claritin PO daily. Orders read back and entered. Will carry out.
[2019-07-15] MEDS: HYDROcodone/Acetamin 7.5/325 tab ORAL PRN (18:54)
--- NOTE | 2019-07-15 19:45 | NUR ---
HAND-OFF: Report given to Sherie GUERRA.
[2019-07-15 20:00] VITALS: BP 126/71
--- NOTE | 2019-07-15 22:23 | NUR ---
NURSES NOTES: Received pt laying in bed, A/OX4, answers all questions appropriately and able to let needs be known. Patient ambulates to restroom without needing additional assistance. Received all 2100 meds that were due. No adverse effects noted from OxyContin 20mg. Patient offered benadrly for rash/ posterior, but pt declined. Will offer again. 100.4 temperature noted- tylenol 650 mg given at 2200. All other VS WNL. Monitoring pt for AMS resulting from pain medication. None noted thus far. Bed at lowest level, call light within reach.
[2019-07-16] MEDS: HYDROcodone/Acetamin 7.5/325 tab ORAL PRN (03:01)
[2019-07-16 04:00] VITALS: BP 125/80
[2019-07-16 06:05] LABS: BASOPHILS % (AUTO) 0.7 % (0.0-2.0); EOSINOPHILS % (AUTO) 4.9 % (0.0-3.0); HEMATOCRIT 29.5 % (37.0-47.0); HEMOGLOBIN 9.9 G/DL (12.0-16.0); LYMPHOCYTES % (AUTO) 22.3 % (20.0-45.0); MEAN CORPUSCULAR VOLUME 87 FL (80-99); MONOCYTES % (AUTO) 7.8 % (1.0-10.0); NEUTROPHILS % (AUTO) 64.3 % (45.0-75.0); PLATELET COUNT 197 K/UL (150-450); RED BLOOD COUNT 3.38 M/UL (4.20-5.40); RED CELL DISTRIBUTION WIDTH 12.1 % (11.6-14.8); WHITE BLOOD COUNT 8.1 K/UL (4.8-10.8)
--- NOTE | 2019-07-16 07:15 | NUR ---
NURSES NOTE: Report given to CHARLIE Peng.
--- NOTE | 2019-07-16 07:41 | NUR ---
NURSE NOTES: AWAKE/ALERT. NO C/O PAIN. RT HIP DRESSING DRY AND INTACT. ICE PACK ON. WITH GOOD PEDAL PULSE. IN NO ACUTE DISTRESS.
[2019-07-16] MEDS ORDERED: DiphenhydrAMINE & Zinc 28g Cream TOPIC PRN (07:45)
--- NOTE | 2019-07-16 07:49 | Orthopedic Progress Note ---
Orthopedic - Progress Note Subjective Symptoms: improved Objective Laboratory Tests Test 07/16/19 04:35 White Blood Count 8.1 K/UL (4.8-10.8) Red Blood Count 3.38 M/UL (4.20-5.40) L Hemoglobin 9.9 G/DL (12.0-16.0) L Hematocrit 29.5 % (37.0-47.0) L Mean Corpuscular Volume 87 FL (80-99) Mean Corpuscular Hemoglobin 29.2 PG (27.0-31.0) Mean Corpuscular Hemoglobin Concent 33.5 G/DL (32.0-36.0) Red Cell Distribution Width 12.1 % (11.6-14.8) Platelet Count 197 K/UL (150-450) Mean Platelet Volume 7.1 FL (6.5-10.1) Neutrophils (%) (Auto) 64.3 % (45.0-75.0) Lymphocytes (%) (Auto) 22.3 % (20.0-45.0) Monocytes (%) (Auto) 7.8 % (1.0-10.0) Eosinophils (%) (Auto) 4.9 % (0.0-3.0) H Basophils (%) (Auto) 0.7 % (0.0-2.0) Last 24 Hour Vital Signs Date Time Temp Pulse Resp B/P (MAP) Pulse Ox O2 Delivery O2 Flow Rate FiO2 07/16/19 04:00 98.3 87 17 125/80 (95) 95 07/15/19 22:45 98.4 07/15/19 21:00 Room Air 07/15/19 20:00 100.4 90 18 126/71 (89) 94 07/15/19 16:00 98.2 92 17 119/70 (86) 95 07/15/19 11:32 98.1 86 16 126/73 (90) 98 07/15/19 09:00 Room Air 07/15/19 08:00 98.1 104 17 105/63 (77) 93 Intake and Output 07/15/19 07/16/19 19:00 07:00 Intake Total 800 ml 240 ml Balance 800 ml 240 ml Intake Oral 800 ml 240 ml # Voids 2 3 Laboratory Tests Test 07/16/19 04:35 White Blood Count 8.1 K/UL (4.8-10.8) Red Blood Count 3.38 M/UL (4.20-5.40) L Hemoglobin 9.9 G/DL (12.0-16.0) L Hematocrit 29.5 % (37.0-47.0) L Mean Corpuscular Volume 87 FL (80-99) Mean Corpuscular Hemoglobin 29.2 PG (27.0-31.0) Mean Corpuscular Hemoglobin Concent 33.5 G/DL (32.0-36.0) Red Cell Distribution Width 12.1 % (11.6-14.8) Platelet Count 197 K/UL (150-450) Mean Platelet Volume 7.1 FL (6.5-10.1) Neutrophils (%) (Auto) 64.3 % (45.0-75.0) Lymphocytes (%) (Auto) 22.3 % (20.0-45.0) Monocytes (%) (Auto) 7.8 % (1.0-10.0) Eosinophils (%) (Auto) 4.9 % (0.0-3.0) H Basophils (%) (Auto) 0.7 % (0.0-2.0) Wound: clean, dry, intact Drains: none Neuro Status: normal Vascular Status: normal Assessment Post-op Diagnosis POD 3 Procedure Performed rt total hip arthroplasty Plan Plan: discharge to home - with home care. fu as outpt. pt has all home meds. Danica Asher Jul 16, 2019 07:49
--- NOTE | 2019-07-16 07:50 | Discharge Summary ---
Discharge Summary Hospital Course Date of Admission Jul 13, 2019 at 05:39 Date of Discharge 07/16/19 Admitting Diagnosis rt hip arthritis Reason for Hospitalization: s/p rt total hip arthroplasty HPI Mer Stewart is a 63 year old female who was admitted on Jul 13, 2019 at 05 :39 for Primary Osteoarthritis Of Right Hip Consultations MD Ashish Procedures Rt total hip arthroplasty Hospital Course benign Discharge Condition Upon Discharge: improving, stable Discharge Disposition Patient was discharged to home with home care Danica Asher Jul 16, 2019 07:50
[2019-07-16 08:00] VITALS: BP 131/72
[2019-07-16] MEDS: celeBREX 200mg Cap **SURGERY PATIENTS ONLY ORAL SCH (08:49)
[2019-07-16] MEDS: Docusate 100mg cap ORAL SCH ×2 (08:49→12:53)
[2019-07-16] MEDS: oxyCONTIN 20mg tab ORAL SCH (08:50)
[2019-07-16] MEDS ORDERED: COLACE100 MG ORAL (09:54)
[2019-07-16] MEDS ORDERED: FAMOTIDINE20 MG ORAL (09:55)
[2019-07-16] MEDS ORDERED: FEOSOL325 MG PO (09:56)
[2019-07-16] MEDS ORDERED: LORATADINE10 M1 PO (09:57)
[2019-07-16] MEDS ORDERED: GABAPENTIN100 MG ORAL (09:57)
[2019-07-16] MEDS ORDERED: PROTONIX40 MG ORAL (09:58)
[2019-07-16] MEDS ORDERED: ASPIRIN325 MG ORAL (09:59)
[2019-07-16] MEDS ORDERED: CELEBREX200 MG ORAL (09:59)
[2019-07-16 12:00] VITALS: BP 151/88
--- NOTE | 2019-07-16 15:55 | NUR ---
DISCHARGE PLANNED PATIENT IS RETURNING HOME FAXED HOME HEALTH AND DME ORDERS TO [facility]UTI[facility]RRE[facility]: [place] T: [phone] F: [phone] [facility] WILL ARRANGE FOR DME AND HOME HEALTH
[2019-07-16 16:00] VITALS: BP 135/88
--- NOTE | 2019-07-16 16:50 | NUR ---
NURSE NOTES: DISCHARGED HOME PER WHEELCHIR [facility] BY FRIEND IN STABLE CONDITION. DC INSTRUCTIONS GIVEN. FWW. AND RAISED TOILET SEAT PROVIDED. BEDSIDE COMMODE WILL BE DELIVERED AT HOME.
--- NOTE | 2019-07-19 15:05 | NUR ---
*-* INSURANCE *-* DISCHARGE SUMMARY HAS BEEN FAXED TO: [facility] Auth#[id number] NCM:[facility]ANKLIN & MARIAH Tracking#[id number]
== END 2019-07-16 16:50 | disposition home or self-care (01) | DRG 470 ==
LOC: SDSOVERFLO 05:39 → 3E 10:00
PROC: 0SR902A Replacement of Right Hip Joint with Metal on Polyethylene Synthetic Substitute, Uncemented, Open Approach (ICD-10-PCS; principal; 2019-07-13 07:00)
DX: M16.11 Unilateral primary osteoarthritis, right hip (principal); R00.2 Palpitations; F17.200 Nicotine dependence, unspecified, uncomplicated
CPT/HCPCS: 36415; 72170; 80048; 85025; 86850; 86900; 86901; 87081; 93970; 94003; 94150; J2405

== ENCOUNTER 2019-12-16 11:36 | Emergency (ER) | payer BC ==
[~2019-12-16] VITALS: Ht 172.7 cm; Wt 65.8 kg
[2019-12-16 11:17] VITALS: BP 167/100
--- NOTE | 2019-12-16 11:29 | Emergency Room Report ---
History of Present Illness General Chief Complaint: Flu Like Symptoms Source: Patient Present Illness HPI 64-year-old female presents with cough, congestion fever/chills/body aches x1 day no aggravating or alleviating factor severity is moderate, constant patient presents for evaluation she denies any shortness of breath or chest pain no nausea no vomiting she feels very weak patient presents for evaluation COVID-19 risk:Contact w/high r: No COVID-19 risk:Travel to affect: No Has patient experienced grant: Yes Coronavirus symptoms experienc: Cough, Runny Nose, Flu-Like Symptoms Allergies: Coded Allergies: No Known Allergies (Unverified , 12/16/19) Patient History Past Medical History: see triage record Reviewed Nursing Documentation: PMH: Agreed; PSxH: Agreed Review of Systems All Other Systems: negative except mentioned in HPI Physical Exam Vital Signs Date Time Temp Pulse Resp B/P (MAP) Pulse Ox O2 Delivery O2 Flow Rate FiO2 12/16/19 11:17 97.5 92 19 167/100 95 Room Air Sp02 EP Interpretation: reviewed, normal General Appearance: well appearing, no apparent distress, alert Head: normocephalic, atraumatic Eyes: bilateral eye PERRL, bilateral eye EOMI ENT: uvula midline, moist mucus membranes, nasal congestion Neck: supple, thyroid normal, supple/symm/no masses Respiratory: lungs clear, no respiratory distress, no retraction, no accessory muscle use Cardiovascular #1: normal peripheral pulses, regular rate, rhythm, no edema, no gallop, no murmur Gastrointestinal: non tender, soft, no guarding, no rebound Musculoskeletal: normal inspection Neurologic: alert, oriented x3 Psychiatric: mood/affect normal Skin: no rash, warm/dry Medical Decision Making Diagnostic Impression: Primary Impression: Viral syndrome ER Course 64-year-old female presents with cough, congestion, fever/chills differential diagnosis includes CO VID, upper respiratory infection, viral syndrome Counseled patient to self isolate, social distancing Disposition home with return precautions, symptomatic care Last Vital Signs Date Time Temp Pulse Resp B/P (MAP) Pulse Ox O2 Delivery O2 Flow Rate FiO2 12/16/19 11:17 92 19 Room Air 12/16/19 11:17 97.5 167/100 (122) 95 Disposition: HOME, SELF-CARE Condition: Stable [facility] Departure Forms: Return to Work Return to Work Date: Dec 30, 2019 Other Restrictions: Patient will need social isolation for 14 days Patient Instructions: Upper Respiratory Infection, Adult, [id number] Additional Instructions: The patient was provided with discharge instructions, notified to follow-up with a primary care doctor and or specialist in the next 24-48 hours, and to return to the ED if they have worsening of their symptoms. Please note that this report is being documented using [employer] technology. This can lead to erroneous entry secondary to incorrect interpretation by the dictating instrument. Please self isolate for 14 days until symptoms resolve. Please practice social isolation. Strongly recommend proper hand hygiene. Richy Seals MD Dec 16, 2019 11:29
[~2019-12-16 11:36] MED LIST changes: +ASPIRIN325 MG ORAL; +CELEBREX200 MG ORAL; +COLACE100 MG ORAL; +FAMOTIDINE20 MG ORAL; +FEOSOL325 MG PO; +LORATADINE10 M1 PO; +PROTONIX40 MG ORAL
[2019-12-16 11:50] VITALS: BP 158/68
== END 2019-12-16 11:50 | disposition home or self-care (01) ==
LOC: EMR 11:43
DX: B34.9 Viral infection, unspecified (principal)
CPT/HCPCS: 99281